=== PATIENT | female | born 1940 | race Caucasian/White ===

== ENCOUNTER 2024-05-17 14:32 | Inpatient (IN) | payer MEDICARE, BC ==
[~2024-05-17] VITALS: Ht 149.9 cm; Wt 55.0 kg
[2024-05-17] VITALS (7 sets, daily range): BP systolic 86–134; BP diastolic 51–65; PULSE 45–88; RESP 15; TEMP 97.1; O2SAT 98
[~2024-05-17 14:32] MED LIST: APIX2.5T PO; METO-395 PO; TEMA15CA PO
[2024-05-17] MEDS: diltiazem 5mg/ml 5ml inj. IV ONE ×2 (15:05→15:11)
[2024-05-17 15:15] LABS: EOSINOPHILS # (AUTO) 0.1 X10'3 (0-0.9); EOSINOPHILS % (AUTO) 1.3 % (0-6); HEMATOCRIT 42.1 % (35.0-45.0); LYMPHOCYTES # (AUTO) 1.5 X10'3 (1.1-4.8); MEAN PLATELET VOLUME 10.8 FL (7.4-10.4); RED CELL DISTRIBUTION WIDTH 12.8 % (11.5-14.5); WHITE BLOOD COUNT 5.5 X10'3 (4.5-11.0)
[2024-05-17 15:16] LABS: BASOPHILS % (AUTO) 0.5 % (0-1); HEMOGLOBIN 13.9 g/dl (12.0-16.0); LYMPHOCYTES % (AUTO) 27.1 % (21-51); MEAN CORPUSCULAR HEMOGLOBIN 31.7 PG (27.0-31.0); MEAN CORPUSCULAR VOLUME 96.2 FL (78-98); MONOCYTES # (AUTO) 0.6 X10'3 (0-0.9); MONOCYTES % (AUTO) 10.8 % (2-12); NEUTROPHILS # (AUTO) 3.3 X10'3 (1.8-7.7); NEUTROPHILS % (AUTO) 60.3 % (42-75); PLATELET COUNT 181 X10'3 (140-440); RED BLOOD COUNT 4.38 X10'6 (4.20-5.60)
[2024-05-17 15:45] LABS: ANION GAP 6 (8-16); BILIRUBIN,TOTAL 0.7 MG/DL (0.1-1.0); BLOOD UREA NITROGEN 22 MG/DL (7-18); BUN/CREATININE RATIO 27.5 (10.0-20.0); CALCIUM 9.3 MG/DL (8.5-10.1); CHLORIDE 106 MMOL/L (99-107); GLUCOSE 153 MG/DL (70-104); POTASSIUM 4.3 MMOL/L (3.5-5.1); SODIUM 137 MMOL/L (135-145); TOTAL CARBON DIOXIDE 24.6 MMOL/L (24-32); eCRCL 36 ML/MIN; eGFR 68 ML/MIN
[2024-05-17 15:46] LABS: ALANINE AMINOTRANSFERASE 24 U/L (12-78); ALBUMIN 3.5 G/DL (3.4-5.0); ALBUMIN/GLOBULIN RATIO 0.9 (1.1-1.5); ALKALINE PHOSPHATASE 63 IU/L (46-116); ASPARTATE AMINO TRANSFERASE 24 U/L (10-37); PRO BRAIN NATRIURETIC PEPTIDE 2067 PG/ML (0-450); TOTAL PROTEIN 7.4 G/DL (6.4-8.2)
[2024-05-17] MEDS ORDERED: diltiazem-NS 100mg/100ml 100 ML IV SCH (16:50)
[2024-05-17] MEDS ORDERED: potassium Cl 20 mEq SR tablet PO PRN ×2 (17:15)
[2024-05-17] MEDS ORDERED: magnesium Cl slow-release 64mg tablet PO PRN (17:15)
[2024-05-17] MEDS ORDERED: acetaminophen 325mg tablet PO PRN ×2 (17:15)
[2024-05-17] MEDS ORDERED: magnesium sulf-water 4G/100mL 100 ML IV PRN (17:15)
[2024-05-17] MEDS ORDERED: potassium Cl 40MEQ/1/2NS 520ml 520 ML IV PRN (17:15)
[2024-05-17] MEDS ORDERED: ondansetron/PF 4mg/2ml inj IV PRN (17:15)
[2024-05-17] MEDS ORDERED: magnesium sulf-water 2g/50mL 50 ML IV PRN (17:15)
[2024-05-17] MEDS: normal saline 1000ml 1,000 ML IV SCH (17:38)
[2024-05-17] MEDS: diltiazem-NS 100mg/100ml 100 ML IV SCH (17:38)
[2024-05-17] MEDS ORDERED: temazepam 15mg capsule PO PRN (18:10)
[2024-05-17] MEDS: apixaban 2.5mg tablet PO SCH (20:00)
[2024-05-17] MEDS ORDERED: heparin, porcine 5000 units/ml vial SQ SCH (20:00)
[2024-05-18] VITALS (8 sets, daily range): BP systolic 103–137; BP diastolic 48–60; PULSE 66–76; RESP 14–19; TEMP 96.8–98.2; O2SAT 95–98
[2024-05-18 08:30] LABS: BASOPHILS # (AUTO) 0.1 X10'3 (0-0.2); BASOPHILS % (AUTO) 1.2 % (0-1); EOSINOPHILS # (AUTO) 0.1 X10'3 (0-0.9); EOSINOPHILS % (AUTO) 3.1 % (0-6); HEMOGLOBIN 11.8 g/dl (12.0-16.0); LYMPHOCYTES # (AUTO) 1.5 X10'3 (1.1-4.8); LYMPHOCYTES % (AUTO) 33.5 % (21-51); MEAN CORPUSCULAR HEMOGLOBIN 31.4 PG (27.0-31.0); MEAN CORPUSCULAR HGB CONC 32.9 g/dL (33.0-36.5); MEAN CORPUSCULAR VOLUME 95.5 FL (78-98); MEAN PLATELET VOLUME 10.6 FL (7.4-10.4); MONOCYTES # (AUTO) 0.4 X10'3 (0-0.9); MONOCYTES % (AUTO) 9.3 % (2-12); NEUTROPHILS # (AUTO) 2.4 X10'3 (1.8-7.7); NEUTROPHILS % (AUTO) 52.9 % (42-75); PLATELET COUNT 151 X10'3 (140-440); RED BLOOD COUNT 3.77 X10'6 (4.20-5.60); RED CELL DISTRIBUTION WIDTH 12.9 % (11.5-14.5); WHITE BLOOD COUNT 4.5 X10'3 (4.5-11.0)
[2024-05-18 09:10] LABS: ALANINE AMINOTRANSFERASE 18 U/L (12-78); ALBUMIN 2.9 G/DL (3.4-5.0); ALBUMIN/GLOBULIN RATIO 0.9 (1.1-1.5); ALKALINE PHOSPHATASE 48 IU/L (46-116); ANION GAP 6 (8-16); ASPARTATE AMINO TRANSFERASE 22 U/L (10-37); BILIRUBIN,TOTAL 0.4 MG/DL (0.1-1.0); BLOOD UREA NITROGEN 25 MG/DL (7-18); BUN/CREATININE RATIO 32.1 (10.0-20.0); CALCIUM 8.3 MG/DL (8.5-10.1); CHLORIDE 108 MMOL/L (99-107); CREATININE 0.78 MG/DL (0.40-0.90); GLUCOSE 112 MG/DL (70-104); POTASSIUM 3.9 MMOL/L (3.5-5.1); SODIUM 141 MMOL/L (135-145); TOTAL CARBON DIOXIDE 27.1 MMOL/L (24-32); TOTAL PROTEIN 6.1 G/DL (6.4-8.2); eCRCL 37 ML/MIN; eGFR 70 ML/MIN
[2024-05-18] MEDS: metoprolol succinate 25mg (24-HOUR) SR. Tablet PO SCH (10:31)
== END 2024-05-18 17:05 | disposition home or self-care (01) | DRG 310 ==
LOC: ER 14:33 → ED HOLD 17:18 → PCU 3S 19:15
PROVIDERS: ADMIT Internal Medicine; ATTEND Internal Medicine
DX: I48.91 Unspecified atrial fibrillation (principal); I48.92 Unspecified atrial flutter; G47.00 Insomnia, unspecified; Z79.01 Long term (current) use of anticoagulants; Z83.3 Family history of diabetes mellitus; Z80.8 Family history of malignant neoplasm of other organs or systems; Z82.3 Family history of stroke; Z98.82 Breast implant status; Z90.710 Acquired absence of both cervix and uterus
CPT/HCPCS: 36415; 71045; 80053; 83880; 84484; 85025; 87081; 93005; 96374; 96376; 99285; G0378; J3490; J7030